=== PATIENT | male | born 1995 | race Caucasian/White ===

== ENCOUNTER 2018-02-12 12:10 | Emergency (ER) | payer OTHER ==
[~2018-02-12] VITALS: Ht 177.8 cm; Wt 66.0 kg
[2018-02-12] MEDS ORDERED: SODIUM CHLORIDE FLUSH 10ML SYR IVF ONE ×2 (12:30→15:30)
[2018-02-12 12:52] LABS: BASOPHILS # (AUTO) 0.02 x10^3/uL (0-0.1); BASOPHILS % (AUTO) 0 % (0-1); EOSINOPHILS # (AUTO) 0.03 x10^3/uL (0-0.4); EOSINOPHILS % (AUTO) 1 % (1-7); LYMPHOCYTES # (AUTO) 1.38 x10^3/uL (1-3.4); LYMPHOCYTES % (AUTO) 26 % (22-44); MD NO; MEAN CORPUSCULAR HEMOGLOBIN 28.5 pg (27.5-34.5); MEAN CORPUSCULAR HGB CONC 33.9 g/dL (33.2-36.2); MEAN CORPUSCULAR VOLUME 84.1 fL (81-97); MEAN PLATELET VOLUME 9.9 fL (7.4-10.4); MONOCYTES # (AUTO) 0.33 x10^3/uL (0.2-0.8); MONOCYTES % (AUTO) 6 % (2-9); NEUTROPHILS # (AUTO) 3.53 x10^3/uL (1.8-6.8); NEUTROPHILS % (AUTO) 67 % (42-75); PLATELET COUNT 221 x10^3/uL (130-400); RED BLOOD COUNT 6.13 x10^6/uL (4.38-5.82); RED CELL DISTRIBUTION WIDTH 13.4 % (9.4-14.8)
[2018-02-12 13:04] LABS: ALANINE AMINOTRANSFERASE 21 U/L (12-78); ALBUMIN 4.6 g/dL (3.4-5.0); ANION GAP 4 mmol/L (5-15); CALCIUM 9.3 mg/dL (8.5-10.1); CHLORIDE 104 mmol/L (98-107); CREATININE 1.06 mg/dL (0.7-1.3)
[2018-02-12 13:06] LABS: ALKALINE PHOSPHATASE 88 U/L (45-117); BILIRUBIN,TOTAL 1.1 mg/dL (0.2-1.0); TOTAL PROTEIN 8.2 g/dL (6.4-8.2)
[2018-02-12 15:56] LABS: MICROSCOPIC NOT IND
[2018-02-12] MEDS ORDERED: OMNIPAQUE 350 MG/ML, 100ML BOTTLE ONE (16:00)
[2018-02-12 16:45] VITALS: BP 114/78
== END 2018-02-12 16:47 | disposition home or self-care (01) ==
LOC: ED 16:40
DX: K62.5 Hemorrhage of anus and rectum (principal)
CPT/HCPCS: 36415; 74177; 80053; 81003; 83690; 85025; 99285; Q9967

== ENCOUNTER 2018-04-29 05:31 | Day surgery (SDC) | payer OTHER ==
[2018-04-19 13:25] VITALS: BP 122/79
[~2018-04-29] VITALS: Ht 177.8 cm; Wt 68.0 kg
[~2018-04-29 05:31] MED LIST: CALC625T23 PO
[2018-04-29] MEDS ORDERED: LACTATED RINGERS 1,000 ML IV SCH (06:26)
[2018-04-29 06:29] VITALS: BP 122/79
[2018-04-29] MEDS ORDERED: GABAPENTIN 300 MG CAPSULE PO ONE (06:30)
[2018-04-29] MEDS ORDERED: ACETAMINOPHEN 500 MG TABLET PO ONE (06:30)
[2018-04-29] MEDS ORDERED: LIDOCAINE-MPF 1%, 2ML INFIL ONE (06:30)
[2018-04-29] MEDS ORDERED: MIDAZOLAM 1 MG/ML, 2ML ONE (06:33)
[2018-04-29] MEDS ORDERED: FENTANYL PF 250 MCG/5ML ONE (06:33)
[2018-04-29] MEDS ORDERED: CEFAZOLIN 1,000 MG ONE (06:40)
[2018-04-29] MEDS ORDERED: PROPOFOL 10 MG/ML, 20ML ONE (06:40)
[2018-04-29] MEDS ORDERED: GLYCOPYRROLATE 0.2MG/1ML, 5ML ONE (06:40)
[2018-04-29] MEDS ORDERED: ROCURONIUM 10MG/ML,5ML ONE (06:40)
[2018-04-29] MEDS ORDERED: NEOSTIGMINE 1 MG/ML, 10ML ONE (06:40)
[2018-04-29] MEDS ORDERED: DEXAMETHASONE 4 MG/ML, 1ML ONE (06:40)
[2018-04-29] MEDS ORDERED: PROMETHAZINE 25 MG SUPP PR PRN (07:00)
[2018-04-29] MEDS ORDERED: MEPERIDINE/PF 25MG/0.5ML IVPush PRN (07:00)
[2018-04-29] MEDS ORDERED: HYDROmorphone 2 MG/ML, 1ML IVPush PRN (07:00)
[2018-04-29] MEDS ORDERED: MORPHINE SULFATE 4 MG/ML, 1ML IVPush PRN (07:00)
[2018-04-29] MEDS ORDERED: PROMETHAZINE 25 MG/ML, 1ML IM PRN ×2 (07:00)
[2018-04-29] MEDS ORDERED: ONDANSETRON 2MG/ML, 2ML IV PRN (07:00)
[2018-04-29] MEDS ORDERED: hydrALAzine 20 MG/ML, 1ML IV PRN (07:00)
[2018-04-29] MEDS ORDERED: PROMETHAZINE 12.5 MG SUPP PR PRN (07:00)
[2018-04-29] MEDS ORDERED: OXYcodone 5 MG/5 ML ORAL.SOL UDC PO PRN (07:00)
[2018-04-29] MEDS ORDERED: FENTANYL PF 100 MCG/2ML IV PRN (07:00)
[2018-04-29] MEDS ORDERED: PROMETHAZINE 25 MG/ML, 1ML IV PRN (07:00)
[2018-04-29] MEDS ORDERED: ONDANSETRON ODT 8 MG PO PRN (07:00)
[2018-04-29] MEDS ORDERED: LABETALOL 5MG/ML, 20ML IV PRN (07:00)
[2018-04-29] MEDS ORDERED: DEXAMETHASONE 4 MG/ML, 5ML ONE (07:15)
[2018-04-29] MEDS ORDERED: SUGAMMADEX 200 MG/2 ML IVPush ONE (07:58)
[2018-04-29] MEDS ORDERED: OXYcodone 5 MG/5 ML ORAL.SOL UDC ONE (08:19)
[2018-04-29] MEDS ORDERED: FENTANYL PF 100 MCG/2ML ONE (09:06)
== END 2018-04-29 10:35 | disposition home or self-care (01) ==
LOC: OUT 05:31
PROVIDERS: ATTEND Otolaryngology Facial Plastic Surgery
DX: J35.01 Chronic tonsillitis (principal); E11.9 Type 2 diabetes mellitus without complications
CPT/HCPCS: 42826; 88304; J0690; J1100; J2250; J2704; J2710; J3010; J3490; J7120

== ENCOUNTER 2018-05-01 17:01 | Observation (INO) | payer OTHER ==
[~2018-05-01] VITALS: Ht 177.8 cm; Wt 70.0 kg
[2018-05-01 17:12] VITALS: BP 96/39
[2018-05-01] MEDS ORDERED: TRANEXAMIC ACID 100 MG/ML, 10ML IV ONE (17:30)
[2018-05-01] MEDS ORDERED: TRANEXAMIC ACID 100 MG/ML, 10ML TP ONE (17:30)
[2018-05-01 17:44] LABS: BASOPHILS # (AUTO) 0.03 x10^3/uL (0-0.1); BASOPHILS % (AUTO) 0 % (0-1); EOSINOPHILS # (AUTO) 0.06 x10^3/uL (0-0.4); EOSINOPHILS % (AUTO) 1 % (1-7); LYMPHOCYTES # (AUTO) 1.63 x10^3/uL (1-3.4); LYMPHOCYTES % (AUTO) 16 % (22-44); MD NO; MEAN CORPUSCULAR HEMOGLOBIN 28.9 pg (27.5-34.5); MEAN CORPUSCULAR HGB CONC 34.7 g/dL (33.2-36.2); MEAN CORPUSCULAR VOLUME 83.4 fL (81-97); MEAN PLATELET VOLUME 9.7 fL (7.4-10.4); MONOCYTES % (AUTO) 10 % (2-9); NEUTROPHILS # (AUTO) 7.28 x10^3/uL (1.8-6.8); NEUTROPHILS % (AUTO) 73 % (42-75); PLATELET COUNT 185 x10^3/uL (130-400); RED BLOOD COUNT 5.51 x10^6/uL (4.38-5.82); RED CELL DISTRIBUTION WIDTH 12.6 % (9.4-14.8)
[2018-05-01 17:59] LABS: ALBUMIN 3.7 g/dL (3.4-5.0); ANION GAP 8 mmol/L (5-15); CALCIUM 8.8 mg/dL (8.5-10.1); CHLORIDE 102 mmol/L (98-107); CREATININE 1.11 mg/dL (0.7-1.3)
[2018-05-01 18:01] LABS: INTERNATIONAL NORMALIZED RATIO 1.08 (0.93-1.1); PROTHROMBIN TIME 11.4 Seconds (9.6-11.5)
[2018-05-01] MEDS ORDERED: HYDR-3241 PO (18:06)
[2018-05-01] MEDS ORDERED: MIDAZOLAM 1 MG/ML, 2ML ONE (18:43)
[2018-05-01] MEDS ORDERED: FENTANYL PF 250 MCG/5ML ONE (18:43)
[2018-05-01] MEDS ORDERED: ROCURONIUM 10 MG/ML,10ML ONE (18:52)
[2018-05-01] MEDS ORDERED: SUCCINYLCHOLINE 20 MG/ML, 10ML ONE (18:52)
[2018-05-01] MEDS ORDERED: PROPOFOL 10 MG/ML, 20ML ONE (18:52)
[2018-05-01] MEDS ORDERED: DEXAMETHASONE 4 MG/ML, 1ML ONE ×2 (19:09)
[2018-05-01] MEDS ORDERED: ONDANSETRON 2MG/ML, 2ML ONE ×2 (19:09)
[2018-05-01] MEDS ORDERED: MEPERIDINE/PF 50 MG/ML ONE (19:44)
[2018-05-01] MEDS ORDERED: hydrALAzine 20 MG/ML, 1ML IV PRN (20:00)
[2018-05-01] MEDS ORDERED: PROMETHAZINE 25 MG/ML, 1ML IV PRN (20:00)
[2018-05-01] MEDS ORDERED: ONDANSETRON 2MG/ML, 2ML IV PRN (20:00)
[2018-05-01] MEDS ORDERED: OXYcodone 5 MG/5 ML ORAL.SOL UDC PO PRN (20:00)
[2018-05-01] MEDS ORDERED: FENTANYL PF 100 MCG/2ML IV PRN (20:00)
[2018-05-01] MEDS ORDERED: ALBUTEROL SULFATE 2.5 MG/3 ML NPPB PRN (20:00)
[2018-05-01] MEDS ORDERED: PROMETHAZINE 12.5 MG SUPP PR PRN (20:00)
[2018-05-01] MEDS ORDERED: EPHEDRINE 50 MG/ML, 1ML IVPush PRN (20:00)
[2018-05-01] MEDS ORDERED: HYDROmorphone 2 MG/ML, 1ML IVPush PRN (20:00)
[2018-05-01] MEDS ORDERED: MEPERIDINE/PF 25MG/0.5ML IVPush PRN (20:00)
[2018-05-01] MEDS ORDERED: DIAZEPAM 5 MG/ML, 2ML IVPush PRN (20:00)
[2018-05-01] MEDS ORDERED: MIDAZOLAM 1 MG/ML, 2ML IV PRN (20:00)
[2018-05-01] MEDS ORDERED: HALOPERIDOL 5 MG/ML IV PRN (20:00)
[2018-05-01] MEDS ORDERED: ONDANSETRON ODT 8 MG PO PRN (20:00)
[2018-05-01] MEDS ORDERED: MORPHINE SULFATE 4 MG/ML, 1ML IVPush PRN (20:00)
[2018-05-01] MEDS ORDERED: LABETALOL 5MG/ML, 20ML IV PRN (20:00)
[2018-05-01] MEDS ORDERED: LACTATED RINGERS 1,000 ML IV SCH (22:00)
== END 2018-05-01 23:00 | disposition home or self-care (01) ==
LOC: OR 17:54 → EDIP 17:55 → 4NOR 21:00
PROVIDERS: ADMIT Otolaryngology Facial Plastic Surgery; ATTEND Otolaryngology Facial Plastic Surgery
DX: J95.830 Postprocedural hemorrhage of a respiratory system organ or structure following a respiratory system procedure (principal); Y83.6 Removal of other organ (partial) (total) as the cause of abnormal reaction of the patient, or of later complication, without mention of misadventure at the time of the procedure
CPT/HCPCS: 36415; 42960; 80048; 82040; 85025; 85610; 86850; 86900; 99284; G0378; J0330; J1100; J2175; J2250; J2405; J2704; J3010